=== PATIENT | female | born 2000 | race Caucasian/White ===

== ENCOUNTER 2023-04-30 05:41 | Emergency (ER) | payer OTHER ==
[~2023-04-30] VITALS: Ht 162.6 cm; Wt 56.7 kg
[2023-04-30 05:52] VITALS: BP 113/79; TEMP 98.1
[2023-04-30] MEDS ORDERED: CYCL5TAB PO (06:46)
[2023-04-30] MEDS ORDERED: LIDO30AD10 TP (06:46)
[2023-04-30] MEDS ORDERED: IBUP-1955 PO (06:46)
[2023-04-30 06:52] VITALS: O2SAT 97
== END 2023-04-30 06:53 | disposition home or self-care (01) ==
LOC: ER 05:44
DX: S29.012A Strain of muscle and tendon of back wall of thorax, initial encounter (principal); M79.661 Pain in right lower leg; M79.662 Pain in left lower leg; V49.9XXA Car occupant (driver) (passenger) injured in unspecified traffic accident, initial encounter; Y93.89 Activity, other specified; Y92.89 Other specified places as the place of occurrence of the external cause; Y99.8 Other external cause status

== ENCOUNTER 2023-07-07 16:03 | Emergency (ER) | payer OTHER ==
[~2023-07-07] VITALS: Ht 162.6 cm; Wt 59.0 kg
[~2023-07-07 16:03] MED LIST: CYCL5TAB PO; IBUP-1955 PO; LIDO30AD10 TP
[2023-07-07 16:22] VITALS: BP 119/74; TEMP 98.4; O2SAT 98
[2023-07-07] MEDS ORDERED: ACET-2605 PO (17:34)
[2023-07-07] MEDS ORDERED: IBUP-1955 PO (17:34)
[2023-07-07] MEDS ORDERED: BACI30OI9 TP (17:34)
== END 2023-07-07 17:44 | disposition home or self-care (01) ==
LOC: ER 16:06
DX: L81.8 Other specified disorders of pigmentation (principal); Z60.2 Problems related to living alone
CPT/HCPCS: 99282; A6403